=== PATIENT | female | born 1990 | race Caucasian/White ===

== ENCOUNTER → 2018-03-31 | Outpatient (CLI) | payer OTHER, BC | LOC: COL.RAD 12:58 | DX: M54.5 Low back pain (principal) ==

== ENCOUNTER → 2019-03-04 | Outpatient (CLI) | payer BC | LOC: MC.RAD 10:16 | DX: N63.21 Unspecified lump in the left breast, upper outer quadrant (principal) ==

== ENCOUNTER → 2019-11-30 | Outpatient (CLI) | payer BC | LOC: MC.RAD 07:21 | DX: N63.21 Unspecified lump in the left breast, upper outer quadrant (principal) ==